=== PATIENT | female | born 1980 | race Caucasian/White ===

== ENCOUNTER 2016-07-16 18:11 | Outpatient (CLI) | payer BC ==
[2016-07-17] MEDS ORDERED: DOCU-94 PO (19:13)
[2016-07-17] MEDS ORDERED: PRENTAB26 PO (19:13)
== END 2016-07-16 19:10 | disposition home or self-care (01) ==
LOC: C.OPB 18:11 → C.LD 18:11 → C.OPB 19:10
PROVIDERS: ATTEND Obstetrics & Gynecology
DX: O36.8130 Decreased fetal movements, third trimester, not applicable or unspecified (principal); O09.523 Supervision of elderly multigravida, third trimester; Z3A.39 39 weeks gestation of pregnancy

== ENCOUNTER 2016-07-17 17:27 | Outpatient (CLI) | payer BC ==
[~2016-07-17] VITALS: Ht 154.9 cm; Wt 65.0 kg
[2016-07-17] MEDS ORDERED: ACETAMINOPHEN 325 MG TAB PO PRN (18:00)
[2016-07-17] MEDS ORDERED: ONDANSETRON 4 MG TAB PO PRN (18:00)
[2016-07-17 19:07] LABS: HEMATOCRIT 39.9 % (37-47); MEAN CELL VOLUME 89.3 fL (80-100); MEAN CORPUSCULAR HEMOGLOBIN 31.1 pg (25-34); MEAN CORPUSCULAR HGB CONC 34.8 g/dl (32-36); MEAN PLATELET VOLUME 11.7 fL (7.4-10.4); PLATELET COUNT 132 K/uL (130-400); RED BLOOD COUNT 4.47 M/uL (4.2-5.4)
[2016-07-17 19:10] VITALS: Ht 154.9 cm; Wt 65.0 kg
[2016-07-17] MEDS ORDERED: DOCU-94 PO (19:13)
[2016-07-17] MEDS ORDERED: PRENTAB26 PO (19:13)
[2016-07-17 19:29] LABS: BASO % 0.1 %; BASO ABS # 0.01 K/uL (0-0.2); COMPLETE YES; IG% 0.3 %; LYMPH % 22.2 %; LYMPH ABS # 1.91 K/uL (1.2-3.4); MONO % 6.5 %; NEUT % 69.9 %
[2016-07-17 19:35] LABS: INR 0.9 (0.9-1.1); PROTHROMBIN TIME (PATIENT) 9.7 SECONDS (9.0-12.0)
== END 2016-07-17 20:59 | disposition home or self-care (01) ==
LOC: C.LD 17:27 → C.OPB 17:27
PROVIDERS: ATTEND Obstetrics & Gynecology
DX: O26.853 Spotting complicating pregnancy, third trimester (principal); O62.9 Abnormality of forces of labor, unspecified; O09.513 Supervision of elderly primigravida, third trimester; Z3A.40 40 weeks gestation of pregnancy; Z22.330 Carrier of Group B streptococcus

== ENCOUNTER 2016-07-17 23:15 | Inpatient (IN) | payer BC ==
[~2016-07-17] VITALS: Ht 154.9 cm; Wt 64.9 kg
[~2016-07-17 23:15] MED LIST: DOCU-94 PO; PRENTAB26 PO
[2016-07-17] MEDS ORDERED: LACTATED RINGER'S 1000ML 1,000 ML IV PRN (23:23)
[2016-07-17] MEDS ORDERED: PENICILLIN G POTASSIUM IV 6 MU in DEXTROSE 5% 250ML 250 ML IV ONE (23:30)
[2016-07-17] MEDS: LACTATED RINGER'S 1000ML 1,000 ML IV SCH (23:42)
[2016-07-17] MEDS ORDERED: LACTATED RINGER'S 1000ML 500 ML IV PRN (23:46)
[2016-07-17 23:51] LABS: HEMATOCRIT 38.6 % (37-47); MEAN CELL VOLUME 88.5 fL (80-100); MEAN CORPUSCULAR HEMOGLOBIN 31.7 pg (25-34); MEAN CORPUSCULAR HGB CONC 35.8 g/dl (32-36); MEAN PLATELET VOLUME 11.5 fL (7.4-10.4); PLATELET COUNT 131 K/uL (130-400); RED BLOOD COUNT 4.36 M/uL (4.2-5.4); WHITE BLOOD COUNT 9.91 K/uL (4.8-10.8)
[2016-07-18 00:12] VITALS: Ht 154.9 cm; Wt 64.9 kg
[2016-07-18] MEDS ORDERED: BUPIVACAINE 0.25% 30 ML VIAL ONE (00:51)
[2016-07-18] MEDS ORDERED: FENTANYL CITRATE INJ 50 MCG/1 ML 2 ML VIAL ONE ×2 (00:51→06:19)
[2016-07-18] MEDS ORDERED: EpHEDrine SULFATE INJ 50 MG/ML AMP ONE (00:51)
[2016-07-18] MEDS ORDERED: FENTANYL 2MCG/ML ROPIV 1.25MG/ML 100ML BAG EPI ONE (00:52)
[2016-07-18] MEDS: LACTATED RINGER'S 1000ML 1,000 ML IV SCH (01:44)
[2016-07-18] MEDS ORDERED: LACTATED RINGER'S 1000ML 500 ML IV PRN (01:54)
[2016-07-18] MEDS ORDERED: NALOXONE HCL INJ 1 MG in SODIUM CHLORIDE 0.9% 1000ML 1,000 ML IV PRN (01:54)
[2016-07-18] MEDS ORDERED: NALOXONE HCL INJ 0.4 MG/1 ML VIAL/CARP IV PRN (02:00)
[2016-07-18] MEDS ORDERED: EpHEDrine SULFATE INJ 50 MG/ML AMP IV PRN (02:00)
[2016-07-18] MEDS ORDERED: DiphenhydrAMINE HCL 50 MG/ML VIAL IV PRN (02:00)
[2016-07-18] MEDS ORDERED: NALBUPHINE HCL INJ 10 MG/ML AMP IV PRN (02:00)
[2016-07-18] MEDS: PENICILLIN G POTASSIUM IV 3 MU in DEXTROSE 5% 100ML 100 ML IV PRN ×2 (03:20→07:06)
[2016-07-18] MEDS: FENTANYL 2MCG/ML ROPIV 1.25MG/ML 100ML BAG EPI PRN ×3 (06:07→09:05)
[2016-07-18] MEDS ORDERED: D5W AND LACTATED RINGERS 1,000 ML IV SCH (07:38)
[2016-07-18] MEDS ORDERED: ONDANSETRON INJ 2 MG/ML 2 ML VIAL IV PRN (07:45)
[2016-07-18] MEDS ORDERED: BENZOCAINE 20% AER SPR 82.5 GM CAN EXT PRN (09:45)
[2016-07-18] MEDS ORDERED: ACETAMINOPHEN/CODEINE 300/30MG TAB PO PRN (09:45)
[2016-07-18] MEDS ORDERED: SUPERCREAM 0.870 % 15GM JAR EXT PRN (09:45)
[2016-07-18] MEDS ORDERED: LANOLIN OINT EXT PRN ×2 (09:45)
[2016-07-18] MEDS ORDERED: DIPHTHERIA/TETANUS/PERTUSSIS 0.5 ML SYR/VIAL IM. ONE (09:45)
[2016-07-18] MEDS ORDERED: OXYTOCIN 30 UNITS/500ML NSS IV PRN ×2 (09:45)
[2016-07-18] MEDS ORDERED: OXYCODONE/ACETAMINOPHEN 5-325 TAB PO PRN (09:45)
[2016-07-18] MEDS ORDERED: ACETAMINOPHEN 325 MG TAB PO PRN (09:45)
[2016-07-18] MEDS ORDERED: HYDROCORTISONE ACETATE 25 MG SUPP PR PRN (09:45)
--- NOTE | 2016-07-18 10:01 | DELIVERY SUMMARY ---
DATE OF OPERATION: 07/18/2016 DATE OF DELIVERY: 07/18/2016. TIME OF DELIVERY: 9:15 a.m. DELIVERY OF PLACENTA: 9:19 a.m. DELIVERY NOTE: The patient is a 36-year-old 1, para 0 at 40 weeks and 2 days gestation who presented to labor and delivery on the morning of 07/18/2016 with spontaneous rupture of membranes at 22:45 on 07/17/2016. On arrival she had light meconium stained amniotic fluid noted and she was found to be 2 cm, 80% efface, and -2 station. Her contractions were inadequate and therefore oxytocin was began per protocol. She did receive epidural for anesthesia. She reached complete dilation at 8:58 a.m. with the desire to push. The patient to delivery at 9:15 a.m. She delivered a viable female in the right occiput anterior position. Apgars were 8 at 1 minute and 9 at 5 minutes. The baby was placed on the patient's abdomen, delayed cord clamping was performed. Cord was then clamped x2 and cut. Please see nursing notes for further baby assessment. Cord blood was then obtained and intact placenta with 3-vessel cord was delivered at 9:19 a.m. Oxytocin infusion was then began. The lower uterine segment and vagina was cleared of any blood clots and debris. Exploration of the perineum revealed a first degree vaginal laceration which was repaired with 2-0 and 3-0 Vicryl suture in the normal fashion. Excellent hemostasis was noted. No other lacerations were seen. Estimated blood loss was 300 mL. Sponge, instrument and needle counts were found to be correct x2. Both patient and baby tolerated the delivery well and were in delivery with stable vital signs. I attest to the content of the Intraoperative Record and any orders documented therein. Any exceptio ns are noted below.
--- NOTE | 2016-07-18 11:08 | Anesthesia Procedure Note ---
Anesthesia Epidural Removal Nt Date & Time July 18, 2016 at 11:08 Vital Signs Pain Intensity: 0.0 Notes Mental Status: alert / awake / arousable, participated in evaluation Nausea / Vomiting: adequately controlled Pain: adequately controlled Airway Patency, RR, SpO2: stable & adequate BP & HR: stable & adequate Hydration State: stable & adequate Neuraxial Anesthesia: was administered, sensory block is resolving Anesthetic Complications: no major complications apparent, pt satisfied with anesthetic care Epidural: removed without complications, with tip intact
[2016-07-18 15:10] VITALS: BP 93/55; PULSE 69; TEMP 36.8
[2016-07-18] MEDS: DOCUSATE SODIUM 100 MG CAP PO SCH (19:41)
[2016-07-18 19:50] VITALS: BP 105/73; PULSE 76; TEMP 36.8
[2016-07-19 00:30] VITALS: BP 93/54; PULSE 70; TEMP 36.6
[2016-07-19 03:25] VITALS: BP 90/50; PULSE 73; TEMP 36.7
[2016-07-19 06:29] LABS: HEMATOCRIT 33.7 % (37-47)
[2016-07-19] MEDS: FERROUS SULFATE 325 MG TAB PO SCH (07:44)
[2016-07-19] MEDS: PRENATAL VITAMIN TAB PO SCH (07:44)
[2016-07-19] MEDS: DOCUSATE SODIUM 100 MG CAP PO SCH ×2 (07:44→19:59)
[2016-07-19 07:45] VITALS: BP 109/67; PULSE 80; TEMP 36.7
--- NOTE | 2016-07-19 09:11 | OB/GYN Progress Note ---
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 Subjective conversation w/ patient, physical exam Ambulation: ambulating normally Voiding: no voiding problems Passing Gas: Yes Diet Tolerance: Clear Liquids Lochia: Moderate Feeding Type: Breast Feeding Review of Systems Constitutional: No chills, No fatigue, No fever, No problem reported, No sweats , No weakness, No weight loss Respiratory: No cough, No dyspnea at rest, No dyspnea on exertion, No hemoptysis, No problem reported, No shortness of breath, No sputum, No wheezing Cardiac: No PND, No chest pain, No claudication, No edema, No orthopnea, No palpitations, No problem reported Breast: No breast lump, No breast pain, No change in shape, No nipple discharge , No problem reported, No see HPI Abdomen: No GI bleeding, No constipation, No diarrhea, No nausea, No pain, No problem reported, No vomiting Female : No abnormal vaginal bleeding, No dysuria, No hematuria, No incontinence, No problem reported, No see HPI, No urinary frequency, No vaginal discharge Objective Vital Signs Date Time Temp Pulse Resp B/P Pulse Ox O2 Delivery O2 Flow Rate FiO2 07/19/16 07:45 Room Air 07/19/16 07:45 36.7 80 18 109/67 Room Air 07/19/16 03:25 36.7 73 18 90/50 Room Air 07/19/16 00:30 Room Air 07/19/16 00:30 36.6 70 18 93/54 Room Air 07/18/16 19:50 36.8 76 18 105/73 Room Air 07/18/16 15:10 36.8 69 18 93/55 Room Air 07/18/16 15:10 Room Air Physical Exam General Appearance: WELL-APPEARING, WD/WN Respiratory/Chest: chest non-tender, lungs clear, normal breath sounds, no respiratory distress, no accessory muscle use Cardiovascular: regular rate, rhythm, no edema, no gallop, no JVD, no murmur Abdomen: normal bowel sounds, non tender, soft, no organomegaly, no pulsatile mass Fundus: Firm Incision Description: Clean, Dry & Intact Extremities: normal range of motion, non-tender, normal inspection, no pedal edema, no calf tenderness Laboratory Results Last 24 Hours Test 07/19/16 06:12 Hemoglobin 11.7 g/dL Hematocrit 33.7 % Assessment and Plan Day Number: 1 Continue Routine Care: VD Day#1 pt doing well anticipate disch tomorrow
[2016-07-19 12:40] VITALS: BP 107/68; PULSE 83; TEMP 36.8
[2016-07-19] MEDS: ACETAMINOPHEN/CODEINE 300/30MG TAB PO PRN (12:57)
[2016-07-19 16:20] VITALS: BP 102/63; PULSE 88; TEMP 36.7
[2016-07-19] MEDS ORDERED: BISACODYL 5 MG TABEC PO SCH (20:00)
[2016-07-19 23:49] VITALS: BP 99/62; PULSE 78; TEMP 36.6
[2016-07-20] MEDS: ACETAMINOPHEN/CODEINE 300/30MG TAB PO PRN (03:36)
[2016-07-20 06:26] LABS: HEMATOCRIT 35.2 % (37-47); MEAN CORPUSCULAR HEMOGLOBIN 30.7 pg (25-34); MEAN CORPUSCULAR HGB CONC 33.8 g/dl (32-36); MEAN PLATELET VOLUME 10.8 fL (7.4-10.4); PLATELET COUNT 126 K/uL (130-400); RED BLOOD COUNT 3.87 M/uL (4.2-5.4); WHITE BLOOD COUNT 9.44 K/uL (4.8-10.8)
[2016-07-20] MEDS ORDERED: BISACODYL 10 MG SUPP PR PRN (07:00)
[2016-07-20] MEDS: DOCUSATE SODIUM 100 MG CAP PO SCH (07:56)
[2016-07-20] MEDS: PRENATAL VITAMIN TAB PO SCH (07:56)
[2016-07-20] MEDS: FERROUS SULFATE 325 MG TAB PO SCH (07:56)
--- NOTE | 2016-07-20 08:16 | Discharge Instructions ---
Discharge Instructions Date of Service July 20, 2016. Admission Reason for Admission: Check Rupture Discharge Discharge Diagnosis / Problem: term delivered Discharge Goals Goal(s): Routine recovery after delivery Activity Recommendations Activity Limitations: as noted below Lifting Limitations: gradually increase as tolerated Exercise/Sports Limitations: gradually increase as tolerated May Resume Sexual Activity: after follow-up appointment Shower/Bathe: no limitations Driving or Machine Use: resume 3 days after discharge . Current Hospital Diet Patient's current hospital diet: Regular OB Diet Discharge Diet Recommended Diet: Regular OB Diet Pending Studies Studies pending at discharge: no Medical Emergencies . Who to Call and When: Medical Emergencies: If at any time you feel your situation is an emergency, please call 911 immediately. . Non-Emergent Contact Non-Emergency issues call your: Primary Care Provider . . "Provider Documentation" section prepared by Jan Serna. . VTE Core Measure Inpt VTE Proph given/why not?: Treatment not indicated
--- NOTE | 2016-07-20 08:18 | OB/GYN Progress Note ---
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 Subjective conversation w/ patient, conversation w/ family, physical exam Ambulation: ambulating normally Voiding: no voiding problems Passing Gas: Yes Diet Tolerance: Regular Diet Lochia: Small Objective Vital Signs Date Time Temp Pulse Resp B/P Pulse Ox O2 Delivery O2 Flow Rate FiO2 07/19/16 23:51 Room Air 07/19/16 23:49 36.6 78 18 99/62 Room Air 07/19/16 16:20 Room Air 07/19/16 16:20 36.7 88 20 102/63 Room Air 07/19/16 12:40 36.8 83 18 107/68 Room Air Physical Exam General Appearance: WELL-APPEARING, NO APPARENT DISTRESS Abdomen: non tender, soft Fundus: Firm Extremities: normal range of motion, non-tender, normal inspection Laboratory Results Last 24 Hours Test 07/20/16 06:11 White Blood Count 9.44 K/uL Red Blood Count 3.87 M/uL Hemoglobin 11.9 g/dL Hematocrit 35.2 % Mean Corpuscular Volume 91.0 fL Mean Corpuscular Hemoglobin 30.7 pg Mean Corpuscular Hemoglobin Concent 33.8 g/dl RDW Standard Deviation 46.3 fL RDW Coefficient of Variation 14.1 % Platelet Count 126 K/uL Mean Platelet Volume 10.8 fL Assessment and Plan Post- Day Number: 2 Continue Routine Care: discharged
[2016-07-20 08:50] VITALS: BP 108/67; PULSE 77; TEMP 36.9
[2016-07-20 10:30] VITALS: BP_DIAS 67; PULSE 77; TEMP 36.9
[2016-07-20] MEDS ORDERED: ACET-749 PO (10:36)
== END 2016-07-20 11:00 | disposition home or self-care (01) | DRG 775 ==
LOC: C.LD 23:15 → C.OPB 23:15 → C.LD 23:24 → C.OPB 23:24 → C.LD 07-18 01:02 → C.OBG 07-18 15:26
PROVIDERS: ADMIT Obstetrics & Gynecology; ATTEND Obstetrics & Gynecology
PROC: 0HQ9XZZ Repair Perineum Skin, External Approach (ICD-10-PCS; principal; 2016-07-18)
PROC: 10E0XZZ Delivery of Products of Conception, External Approach (ICD-10-PCS; principal; 2016-07-18)
DX: O48.0 Post-term pregnancy (principal); O09.513 Supervision of elderly primigravida, third trimester; O70.0 First degree perineal laceration during delivery; Z3A.40 40 weeks gestation of pregnancy; O99.824 Streptococcus B carrier state complicating childbirth; Z37.0 Single live birth

== ENCOUNTER 2016-10-09 12:05 | Emergency (ER) | payer BC ==
[~2016-10-09] VITALS: Ht 154.9 cm; Wt 56.3 kg
[~2016-10-09 12:05] MED LIST changes: +ACET-749 PO
[2016-10-09 12:07] VITALS: Ht 154.9 cm; Wt 56.3 kg
[2016-10-09] MEDS ORDERED: SODIUM CHLORIDE 0.9% 1000ML 1,000 ML IV STA (12:34)
[2016-10-09] MEDS ORDERED: SODIUM CHLORIDE 0.9% 1000ML 1,000 ML IV ONE (12:34)
[2016-10-09 12:50] LABS: BASO % 0.7 %; BASO ABS # 0.04 K/uL (0-0.2); COMPLETE YES; EOS % 4.3 %; HEMATOCRIT 38.7 % (37-47); IG% 0.2 %; LYMPH % 40.1 %; LYMPH ABS # 2.36 K/uL (1.2-3.4); MEAN CELL VOLUME 86.6 fL (80-100); MEAN CORPUSCULAR HEMOGLOBIN 30.9 pg (25-34); MEAN CORPUSCULAR HGB CONC 35.7 g/dl (32-36); MEAN PLATELET VOLUME 10.6 fL (7.4-10.4); MONO % 6.8 %; NEUT % 47.9 %; PLATELET COUNT 173 K/uL (130-400); RED BLOOD COUNT 4.47 M/uL (4.2-5.4); WHITE BLOOD COUNT 5.88 K/uL (4.8-10.8)
--- NOTE | 2016-10-09 12:56 | EMERGENCY ROOM VISIT NOTE ---
History Report prepared by Aj: Thanh Arias Under the Supervision of: Dr. Nguyễn Grey M.D. First contact with patient: 12:29 Chief Complaint: ED VAG BLEEDING Stated Complaint: HEAVY BLEEDING History of Present Illness The patient is a 36 year old female who presents to the Emergency Room with complaints of worsening vaginal bleeding for the past two days. The patient states that the bleeding significantly worsened last night, and she has to change her tampon every 30 minutes, and she has been passing a lot of clots. She states that she feels dizzy and light headed. The patient states that she has never had anything like this. She states that she gave three months ago vaginally, and a month after she had intermittent bleeding, though she has not had any vaginal bleeding for a month now. She states that this was her first , and there were no complications. The patient denies any fever, chills, back pain, trauma, chest pain, shortness of breath, or urinary symptoms. She states that she is currently not breast feeding, and she states that there is no chance of being . Source of History: patient, spouse/significant other Onset: two days ago Position: other (vagina) Quality: other (bleeding) Timing: worsening Associated Symptoms: No fevers, No chills, No chest pain, No SOB, No back pain, No urinary symptoms Review of Systems See HPI for pertinent positives & negatives. A total of 10 systems reviewed and were otherwise negative. Past Medical & Surgical Medical Problems: (1) Amniotic fluid leaking (2) Spotting affecting in third trimester (3) Uterine contractions at greater than 20 weeks of gestation Old medical records were reviewed. Nurse's notes were reviewed and I agree with. 1. Vaginal delivery 3 months ago. Social History Smoking Status: Former Smoker Marital Status: Housing Status: lives with family Current/Historical Medications Scheduled Multivit/Min/Iron/Fol Ac/Pren ( Vitamin), 1 TAB PO DAILY Scheduled PRN Acetaminophen/Codeine (Tylenol W/Codeine #3), 1 TAB PO Q4H PRN for Pain not controlled by... Docusate Sodium (Colace), 100 MG PO BID PRN for Constipation Allergies Coded Allergies: Ibuprofen (Verified Allergy, Unknown, rhinitis, 10/09/16) Physical Exam Vital Signs Date Time Temp Pulse Resp B/P (MAP) Pulse Ox O2 Delivery O2 Flow Rate FiO2 10/09/16 16:30 36.7 64 18 103/68 100 10/09/16 14:55 70 18 121/72 100 10/09/16 12:07 36.7 80 18 119/75 100 Room Air Physical Exam General: Non-ill appearing young female in no acute distress. HEENT: Normal cephalic atraumatic. Pupils are equal round and reactive to light. Extraocular movements are intact. Oropharynx is pink with moist mucous membranes. No swelling of the mouth lips or tongue. Neck: Supple with a midline trachea. No meningeal signs or stiffness, no JVD or bruits. No Stridor. Chest: Clear to auscultation bilaterally. No wheezes or rhonchi. No increased work of breathing. Heart: regular rate and rhythm. Abdomen: Soft nontender, nondistended without rebound guarding or rigidity. : Normal external exam. Internal exam showed a normal cervix. Small amount of bleeding. No clots or lesions. There was some tenderness with exam. Extremities: No cyanosis clubbing or edema. No calf tenderness or assymetry Spine/Back. Non tender to palpation. No CVA tenderness Skin: Good turgor without rashes. Neurologic exam: Cranial nerves two through 12 are intact. Motor and sensation are intact and symmetrical throughout. Medical Decision & Procedures ER Provider Diagnostic Interpretation: Radiology results as stated below per my review and radiologist interpretation: PELVIC ULTRASOUND, TRANSABDOMINAL AND TRANSVAGINAL HISTORY: eval for retained products, uterine abnormality. Heavy bleeding. COMPARISON: None. FINDINGS: Uterus: 7.3 x 4.4 x 6.3 cm. There is a 1.4 x 1.3 x 1.0 cm hypoechoic lesion within the right side of the uterus. This favors a small fibroid. Endometrial stripe: 7 mm in thickness. There is no color-flow within the endometrium. The endometrial stripe is slightly heterogeneous. Right ovary: Obscured by overlying bowel gas. Left ovary: Normal in size and demonstrates normal color flow. There are few small focal/cysts. Miscellaneous:No pelvic free fluid. IMPRESSION: 1. The endometrial stripe is slightly heterogeneous but normal in thickness. There is no color-flow within the endometrium to suggest retained products of conception. 2. A 1.4 cm hypoechoic lesion within the right side of the uterus. This likely represents a small fibroid. 3. The right ovary was obscured by overlying bowel gas. Electronically signed by: Diomedes Zarate M.D. 10/09/2016 3:32 PM Dictated Date/Time: 10/09/2016 3:29 PM Laboratory Results 10/09/16 12:20 Red Blood Count 4.47, Mean Corpuscular Volume 86.6, Mean Corpuscular Hemoglobin 30.9, Mean Corpuscular Hemoglobin Concent 35.7, Mean Platelet Volume 10.6, Neutrophils (%) (Auto) 47.9, Lymphocytes (%) (Auto) 40.1, Monocytes (%) (Auto) 6.8, Eosinophils (%) (Auto) 4.3, Basophils (%) (Auto) 0.7, Neutrophils # (Auto) 2.82, Lymphocytes # (Auto) 2.36, Monocytes # (Auto) 0.40, Eosinophils # (Auto) 0.25, Basophils # (Auto) 0.04 10/09/16 12:20 Test 10/09/16 12:20 10/09/16 14:40 White Blood Count 5.88 K/uL (4.8-10.8) Red Blood Count 4.47 M/uL (4.2-5.4) Hemoglobin 13.8 g/dL (12.0-16.0) Hematocrit 38.7 % (37-47) Mean Corpuscular Volume 86.6 fL (80-100) Mean Corpuscular Hemoglobin 30.9 pg (25-34) Mean Corpuscular Hemoglobin Concent 35.7 g/dl (32-36) Platelet Count 173 K/uL (130-400) Mean Platelet Volume 10.6 fL (7.4-10.4) Neutrophils (%) (Auto) 47.9 % Lymphocytes (%) (Auto) 40.1 % Monocytes (%) (Auto) 6.8 % Eosinophils (%) (Auto) 4.3 % Basophils (%) (Auto) 0.7 % Neutrophils # (Auto) 2.82 K/uL (1.4-6.5) Lymphocytes # (Auto) 2.36 K/uL (1.2-3.4) Monocytes # (Auto) 0.40 K/uL (0.11-0.59) Eosinophils # (Auto) 0.25 K/uL (0-0.5) Basophils # (Auto) 0.04 K/uL (0-0.2) RDW Standard Deviation 41.2 fL (36.4-46.3) RDW Coefficient of Variation 13.0 % (11.5-14.5) Immature Granulocyte % (Auto) 0.2 % Immature Granulocyte # (Auto) 0.01 K/uL (0.00-0.02) Anion Gap 4.0 mmol/L (3-11) Est Creatinine Clear Calc Drug Dose 80.3 ml/min Estimated GFR () 122.8 Estimated GFR (Non- 106.0 BUN/Creatinine Ratio 16.7 (10-20) Calcium Level 8.9 mg/dl (8.5-10.1) Total Bilirubin 0.4 mg/dl (0.2-1) Direct Bilirubin < 0.1 mg/dl (0-0.2) Aspartate Amino Transf (AST/SGOT) 19 U/L (15-37) Alanine Aminotransferase (ALT/SGPT) 25 U/L (12-78) Alkaline Phosphatase 63 U/L (45-117) Total Protein 7.2 gm/dl (6.4-8.2) Albumin 3.5 gm/dl (3.4-5.0) Lipase 177 U/L (73-393) Human Chorionic Gonadotropin, Qual NEG (NEG) Date/Time Source Procedure Growth Status 10/09/16 14:40 Cervix Swab Trichomonas Preparation - Final Complete Laboratory studies as stated above per my review. Medications Administered Medications (Trade) Dose Ordered Sig/Kayy Route Start Time Stop Time Status Last Admin Dose Admin Sodium Chloride 1,000 ml @ 999 mls/hr Q1H1M STAT IV 10/09/16 12:34 10/09/16 13:34 DC 10/09/16 12:34 999 MLS/HR ED Course 1229: Past medical records reviewed. The patient was evaluated in room B2, and a complete history and physical examination were performed. 1234: Sodium Chloride 1000 ml @ 150 mls/hr IV, Sodium Chloride 1000 ml @ 999 mls /hr IV 1435: I reevaluated the patient, and she was doing well. 1609: Discussed the patient's case with Dr. Serna, [facility]. The patient will be evaluated for further management. Medical Decision Differentials include, but are not limited to; vaginal bleeding, , anemia, ectopic , and electrolyte or metabolic abnormality. This patient comes in as described above. She was placed in room B2. She's been having vaginal bleeding. She is about 3 months she had normal bleeding that stopped until a couple days ago. She did have recent intercourse. She has not had a period until now since her . She's had no fever. She looks well on exam and stable vital signs. IV access established and hydrated with IV normal saline. On pelvic exam, she has a small amount of blood and has a normal-appearing cervix. She is mildly tender but she has nothing else to suggest infection. She has no white count or fever. Her hemoglobin is stable the 13 range. She has no acute electrode or metabolic abnormalities. She is not . She was hydrated with IV normal saline and is feeling much better. Ultrasound does not reveal any significant pathology to explain her symptoms. I have discussed the case with Dr. Teran who believes that she can go home and they can follow up with her the office. Unfortunately, he she cannot take NSAIDs but I told her she can use Tylenol/ acetaminophen instead but do not take with any other medications that contain Tylenol/acetaminophen. She does have a combination pain medicine on her med list and I encouraged her not to take this with Tylenol. I also encouraged her not not to take more than 600 mgs every 6 hours as it could be hard on her liver. She should return if: increasing pain or bleeding, fever chills, lightheadedness or dizziness, worsening of symptoms, any problems concerns. She was happy with the plan and discharged to home. Medication Reconcilliation Current Medication List: was personally reviewed by me Blood Pressure Screening Patient's blood pressure: Normal blood pressure Consults Time Called: 1606 Consulting Physician: Dr. Serna, [facility] Returned Call: 1609 Discussed the patient's case with Dr. Serna, [facility]. The patient will be evaluated for further management. Impression Primary Impression: Vaginal bleeding Scribe Attestation The scribe's documentation has been prepared under my direction and personally reviewed by me in its entirety. I confirm that the note above accurately reflects all work, treatment, procedures, and medical decision making performed by me. Departure Information Dispostion Home / Self-Care Referrals McHail,Marge C.R.N.P. (PCP) Forms HOME CARE DOCUMENTATION FORM, IMPORTANT VISIT INFORMATION, WORK / SCHOOL INSTRUCTIONS Patient Instructions My [email or web address] Additional Instructions Rest. Drink plenty of fluids. May use Tylenol/acetaminophen a maximum of 650 mg every 6 hours for pain Do not take with any other medications that contain Tylenol/acetaminophen Return if: Increasing pain or bleeding, worsening symptoms, lightheadedness or dizziness, fever chills, any new problems or concerns Follow-up with your [facility] in the next 1-2 days for recheck or return to the ER if symptoms worsen
[2016-10-09 13:01] LABS: ALT/SGPT 25 U/L (12-78); BLOOD UREA NITROGEN 12 mg/dl (7-18); BUN/CREATININE RATIO 16.7 (10-20); CALCIUM 8.9 mg/dl (8.5-10.1); CARBON DIOXIDE 28 mmol/L (21-32); CHLORIDE 108 mmol/L (98-107); CREATININE 0.73 mg/dl (0.60-1.20); GLUCOSE 82 mg/dl (70-99); POTASSIUM 3.7 mmol/L (3.5-5.1); SODIUM 140 mmol/L (136-145)
[2016-10-09 13:03] LABS: ALKALINE PHOSPHATASE 63 U/L (45-117); AST/SGOT 19 U/L (15-37)
[2016-10-09 13:12] LABS: PREG INTERNAL NEGATIVE QC NEG CLEAR BACKGROUND; PREG INTERNAL POSITIVE QC POS CONTROL LINE
--- NOTE | 2016-10-09 15:33 | DIAGNOSTIC IMAGING REPORT ---
PELVIC ULTRASOUND, TRANSABDOMINAL AND TRANSVAGINAL HISTORY: eval for retained products, uterine abnormality. Heavy bleeding. COMPARISON: None. FINDINGS: Uterus: 7.3 x 4.4 x 6.3 cm. There is a 1.4 x 1.3 x 1.0 cm hypoechoic lesion within the right side of the uterus. This favors a small fibroid. Endometrial stripe: 7 mm in thickness. There is no color-flow within the endometrium. The endometrial stripe is slightly heterogeneous. Right ovary: Obscured by overlying bowel gas. Left ovary: Normal in size and demonstrates normal color flow. There are few small focal/cysts. Miscellaneous:No pelvic free fluid. IMPRESSION: 1. The endometrial stripe is slightly heterogeneous but normal in thickness. There is no color-flow within the endometrium to suggest retained products of conception. 2. A 1.4 cm hypoechoic lesion within the right side of the uterus. This likely represents a small fibroid. 3. The right ovary was obscured by overlying bowel gas. Electronically signed by: Diomedes Zarate M.D. 10/09/2016 3:32 PM Dictated Date/Time: 10/09/2016 3:29 PM
[2016-10-09 16:30] VITALS: BP 103/68; PULSE 64; TEMP 36.7; O2SAT 100
[2016-10-12 00:44] LABS: CHLAMYDIA TRACH RNA*** NOT DETECTED (NOT DETECTED); GC (NEIS GONORRHOEAE)RNA** NOT DETECTED (NOT DETECTED)
== END 2016-10-09 16:31 | disposition home or self-care (01) ==
LOC: C.EDB 12:06
DX: N93.9 Abnormal uterine and vaginal bleeding, unspecified (principal); Z87.891 Personal history of nicotine dependence